=== PATIENT | female | born 1950 | race Caucasian/White ===

== ENCOUNTER 2021-08-06 13:39 | Emergency (ER) | payer MEDICARE, BC ==
[2021-08-06] MEDS: Diltiazem 25 MG/5 ML SDV IVPUSH ONE (14:28)
[2021-08-06 19:41] VITALS: BP 133/66; PULSE 81
== END 2021-08-06 15:50 | disposition home or self-care (01) ==
LOC: LB.ED 13:39
DX: I47.9 Paroxysmal tachycardia, unspecified (principal); E78.00 Pure hypercholesterolemia, unspecified; I10 Essential (primary) hypertension; Z79.82 Long term (current) use of aspirin; Z79.899 Other long term (current) drug therapy
CPT/HCPCS: 36415; 71045; 80053; 81001; 84443; 84484; 85025; 85610; 93005; 96374; 99285; J3490; 93010; 99283

== ENCOUNTER 2024-02-06 07:53 | Day surgery (SDC) | payer MEDICARE, BC ==
[~2024-02-06 07:53] MED LIST: Metoclopramide 10 MG/2 ML SDV IV PRN; Sodium Chloride 0.9% 1,000 ML IV SCH
[2024-02-06] MEDS: Sodium Chloride 0.9% 500 ML IV ONE (08:20)
[2024-02-06] MEDS ORDERED: Lidocaine 1% 30 ML SDV ONE (10:00)
[2024-02-06] MEDS ORDERED: Propofol 200 MG/20 ML SDV ONE (10:00)
[2024-02-06 10:25] VITALS: BP 126/67; PULSE 87
== END 2024-02-06 11:15 | disposition home or self-care (01) ==
LOC: LB.SDS 07:53
PROVIDERS: ATTEND Surgery
DX: Z12.11 Encounter for screening for malignant neoplasm of colon (principal); R19.5 Other fecal abnormalities; D12.0 Benign neoplasm of cecum; D12.3 Benign neoplasm of transverse colon; K57.30 Diverticulosis of large intestine without perforation or abscess without bleeding; I10 Essential (primary) hypertension; E78.5 Hyperlipidemia, unspecified; Z79.899 Other long term (current) drug therapy
CPT/HCPCS: 88305; J2704; J7040

== ENCOUNTER 2025-01-17 17:03 | Emergency (ER) | payer MEDICARE, BC ==
[2025-01-17] MEDS: methylPREDNISolone Sodium Succinate 125 MG/2 ML SDV IM ONE (18:04)
[2025-01-17 18:44] VITALS: BP 156/86; PULSE 89
== END 2025-01-17 18:15 | disposition home or self-care (01) ==
LOC: LB.ED 17:03
DX: L23.7 Allergic contact dermatitis due to plants, except food (principal); I10 Essential (primary) hypertension; E78.00 Pure hypercholesterolemia, unspecified; Z87.891 Personal history of nicotine dependence; Z79.899 Other long term (current) drug therapy
CPT/HCPCS: 96372; 99282; J2919; 99283